=== PATIENT | female | born 1990 | race Caucasian/White ===

== ENCOUNTER 2016-03-19 20:41 | Emergency (ER) | payer MEDICAID | END 2016-03-19 23:22 | disposition home or self-care (01) | LOC: ER 20:41 | DX: O20.0 Threatened abortion (principal); O36.0990 Maternal care for other rhesus isoimmunization, unspecified trimester, not applicable or unspecified; Z79.899 Other long term (current) drug therapy; F17.210 Nicotine dependence, cigarettes, uncomplicated | CPT/HCPCS: 36415; 76815; 80048; 84702; 85025; 86850; 86900; 86901; 96372 ==